=== PATIENT | male | born 1960 | race Caucasian/White ===

== ENCOUNTER → 2016-12-29 | Outpatient (CLI) | payer MEDICARE, OTHER ==
[~2016-12-29] MED LIST: ALBUTEROL200 PUFFS/ IH; DOXEPIN25 MG PO; LOTENSIN10 MG PO; NAPROSYN 500MG500 MG PO; OMEPRAZOLE20 MG PO; PRAVACHOL20 MG PO; SYMBICORT1 AER IH
--- NOTE | 2016-12-29 13:03 | RADIOLOGY REPORT PS360 ---
ANKLE-LT-3 VIEWS HISTORY: LEFT ANKLE SWELLING ORDERING PHYSICIAN: Hetal Myers MD PATIENT AGE: 56 years COMPARISON: 01/30/2016 FINDINGS: Postsurgical change with fusion of the hindfoot with 2 large madie present as before. Severe pes planus. Arthritic changes are present at the mid foot. There is mild eversion the ankle. Old fracture involving the medial malleolus. IMPRESSION: Chronic changes with prior fusion, old posttraumatic changes, and pes planus, no acute finding
== END ==
LOC: RAD 12:03
DX: M25.472 Effusion, left ankle (principal)

== ENCOUNTER → 2017-07-29 | Day surgery (SDC) | payer MEDICARE, OTHER | LOC: SDC 06-24 09:30 | DX: Z53.9 Procedure and treatment not carried out, unspecified reason (principal) ==